=== PATIENT | female | born 2000 | race Caucasian/White ===

== ENCOUNTER 2020-10-03 19:52 | Emergency (ER) | payer OTHER ==
[~2020-10-03] VITALS: Ht 170.2 cm; Wt 80.7 kg
[2020-10-03 19:54] VITALS: BP 108/69
[2020-10-03 20:31] LABS: BASOPHILS % (AUTO) 0 % (0-1); EOSINOPHILS % (AUTO) 1 % (1-7); LYMPHOCYTES % (AUTO) 21 % (22-44); MEAN CORPUSCULAR HEMOGLOBIN 32.7 pg (27.0-34.8); MEAN CORPUSCULAR HGB CONC 34.3 g/dL (32.4-35.8); MEAN PLATELET VOLUME 7.5 fL (7.4-10.4); MONOCYTES % (AUTO) 7 % (2-9); NEUTROPHILS % (AUTO) 72 % (42-75); PLATELET COUNT 393 x10^3/uL (130-400); RED BLOOD COUNT 4.08 x10^6/uL (3.82-5.3); RED CELL DISTRIBUTION WIDTH 12.9 % (9.6-15.2)
[2020-10-03 20:39] LABS: ANION GAP 3 mmol/L (5-15); CALCIUM 8.8 mg/dL (8.5-10.1); CHLORIDE 107 mmol/L (98-107); CREATININE 0.74 mg/dL (0.55-1.02)
[2020-10-03] MEDS ORDERED: LIDOCAINE 2%, 20ML SQ ONE (22:30)
[2020-10-03] MEDS ORDERED: LIDOCAINE-MPF 2% ,5ML ONE (22:41)
[2020-10-03] MEDS ORDERED: HYDROmorphone 1 MG/ML, 1ML INJ ONE (23:06)
[2020-10-03] MEDS ORDERED: HYDROmorphone 1 MG/ML, 1ML INJ IM ONE (23:30)
[2020-10-04] MEDS ORDERED: SULFAMETH./TRIMETHOPRIM DS 800MG/160MG TABLET ONE (00:47)
[2020-10-04] MEDS ORDERED: CEPHALEXIN 500 MG CAPSULE ONE (00:47)
[2020-10-04] MEDS ORDERED: SULFAMETH./TRIMETHOPRIM DS 800MG/160MG TABLET PO ONE (01:00)
[2020-10-04] MEDS ORDERED: CEPHALEXIN 500 MG CAPSULE PO ONE (01:00)
== END 2020-10-04 01:28 | disposition home or self-care (01) ==
LOC: ED 21:38
DX: N61.1 Abscess of the breast and nipple (principal); L03.313 Cellulitis of chest wall
CPT/HCPCS: 10060; 36415; 76642; 80048; 85025; 96372; 99284; J1170; J3490